=== PATIENT | male | born 1980 | race African-American/Black ===

== ENCOUNTER 2016-07-31 18:20 | Observation (INO) | payer SELFPAY ==
[2016-07-31 18:43] VITALS: BMI 27.3
[2016-07-31] MEDS ORDERED: XYLOCAINE 1% and EPINEPHRINE 1:100,000 ONE (20:41)
[2016-07-31] MEDS ORDERED: DILAUDID INJ IVP ONE (20:55)
[2016-07-31] MEDS ORDERED: DILAUDID INJ ONE (21:00)
[2016-07-31 21:09] LABS: BASOPHILS # (AUTO) 0.1 X10^3/uL (0.0-0.1); BASOPHILS % (AUTO) 0.4 % (0.2-1.0); EOSINOPHILS # (AUTO) 0.2 x10^3/uL (0.0-0.2); EOSINOPHILS % (AUTO) 1.4 % (0.9-2.9); HEMATOCRIT 39.1 % (42.0-54.0); HEMOGLOBIN 12.8 g/dL (13.5-18.0); LYMPHOCYTES # (AUTO) 1.9 X10^3/uL (1.3-2.9); LYMPHOCYTES % (AUTO) 13.6 % (21.0-51.0); MEAN CORPUSCULAR HEMOGLOBIN 30.7 pg (27.0-34.0); MEAN CORPUSCULAR HGB CONC 32.8 g/dL (33.0-35.0); MEAN CORPUSCULAR VOLUME 93.7 fL (80.0-100.0); MEAN PLATELET VOLUME 10.4 fL (7.4-11.0); MONOCYTES # (AUTO) 1.6 x10^3/uL (0.3-0.8); MONOCYTES % (AUTO) 10.9 % (0.0-13.0); NEUTROPHILS # (AUTO) 10.5 x10^3/uL (2.2-4.8); NEUTROPHILS % (AUTO) 73.7 % (42.0-75.0); PLATELET COUNT 177 X10^3/uL (150.0-450.0); RED BLOOD COUNT 4.17 X10^6/uL (4.7-6.0); RED CELL DISTRIBUTION WIDTH 14.8 % (11.6-16.5); WHITE BLOOD COUNT 14.2 X10^3/uL (3.6-10.0)
--- NOTE | 2016-07-31 21:17 | DR.GENAD ---
HPI - PCP Primary Care Physician: nfd - Complaint/Symptoms Chief Complaint Doctors Comments: Patient presents with a large area of cellulitis on the right forearm, he reports that the infection has been present for one week or more. He has tried various over the counter medication w/o relief. Chief Complaint:: pt has large abcess on rt forearm for 3 days very painful redness and warm too the touch noted - Source History Provided: Patient - Mode of Arrival Mode of Arrival: Ambulatory - Timing Onset of Chief Complaint: 07/29/16 PMH - PMH Past Medical History: No Past Surgical History: No - Family History History of Family Medical Conditions: No - Social History Alcohol Use: Occasionally Do you use any recreational Drugs:: No Lives With: Family Lives Where: Home - infectious screening In the last 2 months have you had wt loss of >10#?: NO Have you had fever, night sweats or hemotysis?: No Have you traveled outside the country in the last 6 months?: No Isolation: Standard ROS - Review of Systems Eyes: No Symptoms Reported ENTM: No Symptoms Reported Respiratoy: No Symptoms Reported Cardiovascular: No Symptoms Reported Gastrointestinal/Abdominal: No Symptoms Reported Genitourinary: No Symptoms Reported Neurological: No Symptoms Reported Musculoskeletal: No Symptoms Reported Integumentary: Change in Color, Wound Hematologic/Lymphatic: No Symptoms Reported Endocrine: No Symptoms Reported Psychiatric: No Symptoms Reported All Other Systems: Reviewed and Negative PE - Vital Signs Vitals: Temperature 99.6 F Pulse Rate 77 Respiratory Rate 18 Blood Pressure [Right Arm] 136/82 Blood Pressure [Left Arm] 129/83 Blood Pressure 144/85 O2 Sat by Pulse Oximetry 100 - General Limitations: No Limitations General Appearance: Alert, Anxious - Eyes Eye exam: Normal Appearance, PERRL, EOMI - ENT ENT Exam: Normal Exam External Ear Exam: Normal External Inspection TM/Canal Exam: Bilateral Normal Nose Exam: Normal Nose Exam Mouth Exam: Normal Inspection Throat Exam: Normal Inspection - Neck Neck Exam: Normal Inspection - Chest Chest Inspection: Normal Inspection - Respiratory Respiratory Exam: Normal Lung Sounds Bilat Respiratory Exam: Bilateral Clear to Auscultation - Cardiovascular Cardiovascular Exam: Regular Rate, Normal Rhythm - Abdominal Exam Abdominal Exam: Normal Inspection Abdominal Tenderness: negative: RUQ, RLQ, LUQ, LLQ, Epigastrium, Suprapubic, Diffuse, Mild, Moderate, Severe, Other - Extremities Extremities Exam: Tenderness, Edema (A large area of edema (antecubital space to distal 1/3 of forearm) erythematous) - Back Back Exam: Normal Inspection - Neurologic Neurological Exam: Alert, Oriented X3, CN II-XII Intact - Psychiatric Psychiatric Exam: Normal Affect - Skin Skin Exam: Warm, Dry, Intact Course - Treatment Treatment: Abscess I&D with extrusion of large of purulent material, Vancomycin 1gm IV given s/p Dilaudid IV 1mg. - Reevaluation 1st: Improved ROR - Labs Reviewed Result Diagrams: 07/31/16 20:50 07/31/16 21:27 Laboratory: WBC 14.2 X10^3/uL (3.6-10.0) H 07/31/16 20:50 RBC 4.17 X10^6/uL (4.7-6.0) L 07/31/16 20:50 Hgb 12.8 g/dL (13.5-18.0) L 07/31/16 20:50 Hct 39.1 % (42.0-54.0) L 07/31/16 20:50 MCV 93.7 fL (80.0-100.0) 07/31/16 20:50 MCH 30.7 pg (27.0-34.0) 07/31/16 20:50 MCHC 32.8 g/dL (33.0-35.0) L 07/31/16 20:50 RDW 14.8 % (11.6-16.5) 07/31/16 20:50 Plt Count 177 X10^3/uL (150.0-450.0) 07/31/16 20:50 MPV 10.4 fL (7.4-11.0) 07/31/16 20:50 Neut % 73.7 % (42.0-75.0) 07/31/16 20:50 Lymph % 13.6 % (21.0-51.0) L 07/31/16 20:50 [place] % 10.9 % (0.0-13.0) 07/31/16 20:50 Eos % 1.4 % (0.9-2.9) 07/31/16 20:50 Baso % 0.4 % (0.2-1.0) 07/31/16 20:50 Neut # 10.5 x10^3/uL (2.2-4.8) H 07/31/16 20:50 Lymph # 1.9 X10^3/uL (1.3-2.9) 07/31/16 20:50 [place] # 1.6 x10^3/uL (0.3-0.8) H 07/31/16 20:50 Eos # 0.2 x10^3/uL (0.0-0.2) 07/31/16 20:50 Baso # 0.1 X10^3/uL (0.0-0.1) 07/31/16 20:50 Absolute Nucleated RBC 0.0 /100WBC 07/31/16 20:50 Sodium 141 mmol/L (136-145) 07/31/16 21:27 Corrected Sodium TNP 07/31/16 21:27 Potassium 4.2 mmol/L (3.5-5.1) 07/31/16 21:27 Chloride 103 mmol/L (98-107) 07/31/16 21:27 Carbon Dioxide 30.5 mmol/L (21-32) 07/31/16 21:27 BUN 9 mg/dL (7-18) 07/31/16 21:27 Creatinine 0.98 mg/dL (0.70-1.30) 07/31/16 21:27 Est GFR (MDRD) Af Amer > 60 (>60) 07/31/16 21:27 Est GFR (MDRD) Non-Af > 60 (>60) 07/31/16 21:27 Glucose 79 mg/dL (65-99) 07/31/16 21:27 Calcium 8.5 mg/dL (8.5-10.1) 07/31/16 21:27 Corrected Calcium 9.1 mg/dL (8.5-10.1) 07/31/16 21:27 Total Bilirubin 0.50 mg/dL (0.2-1.0) 07/31/16 21:27 AST 26 Units/L (15-37) 07/31/16 21:27 ALT 30 Units/L (12-78) 07/31/16 21:27 Alkaline Phosphatase 52 Units/L (46-116) 07/31/16 21:27 C-Reactive Protein 113.30 mg/L (0-3.0) H 07/31/16 21:27 Total Protein 7.4 g/dL (6.4-8.2) 07/31/16 21:27 Albumin 3.3 g/dL (3.4-5.0) L 07/31/16 21:27 Globulin 4.1 g/dL (2.5-4.5) 07/31/16 21:27 Albumin/Globulin Ratio 0.8 Ratio (1.1-2.1) L 07/31/16 21:27 Procedures - Incision and Drainage Blade Size: 11 I & D Procedure: betadine prep, sterile drapes applied - Diagnosis Discharge Problem: Abscess of forearm, right, Cellulitis of forearm, right - Discharge Plan Condition: Stable - Follow ups/Referrals Follow ups/Referrals: NFD,None [Primary Care Provider] - 3 days - Instructions
[2016-07-31] MEDS ORDERED: VANCOMYCIN HCL 500 MG VIAL 250 MG, VANCOMYCIN HCL 1 GM VIAL 1 GM in D5W 250 ML IV 250 ML IV SCH (21:20)
[2016-07-31] MEDS ORDERED: VANCOMYCIN 1 GM PREMIX (ADDVANTAGE) 250 ML IV SCH ×2 (22:00→23:00)
[2016-07-31 22:03] LABS: ALANINE AMINOTRANSFERASE 30 Units/L (12-78); ALBUMIN 3.3 g/dL (3.4-5.0); ALKALINE PHOSPHATASE 52 Units/L (46-116); ASPARTATE AMINO TRANSFERASE 26 Units/L (15-37); BLOOD UREA NITROGEN 9 mg/dL (7-18); CALCIUM 8.5 mg/dL (8.5-10.1); CARBON DIOXIDE 30.5 mmol/L (21-32); CHLORIDE 103 mmol/L (98-107); COR CA(FOR HYPOALB) 9.1 mg/dL (8.5-10.1); CREATININE 0.98 mg/dL (0.70-1.30); GLUCOSE 79 mg/dL (65-99); SODIUM 141 mmol/L (136-145); TOTAL PROTEIN 7.4 g/dL (6.4-8.2); eGFR BLACK RACES > 60 (>60); eGFR NON BLACK RACES > 60 (>60)
[2016-07-31] MEDS ORDERED: MOTRIN TAB 600 MG PO PRN (22:51)
[2016-07-31] MEDS ORDERED: PHENERGAN TAB 25 MG PO PRN (22:51)
[2016-07-31] MEDS ORDERED: ZOFRAN INJ 4 MG VIAL IVP PRN (22:55)
[2016-07-31] MEDS ORDERED: NS 1000 ML 1,000 ML with POTASSIUM CHLORIDE INJ 20 MEQ VIAL 20 MEQ IV SCH ×2 (23:00)
[2016-07-31] MEDS ORDERED: NS + KCL 20 MEQ/L 1,000 ML IV ONE (23:41)
[2016-07-31] MEDS: MORPHINE SULFATE INJ 4 MG IVP PRN (23:58)
[2016-08-01 02:02] LABS: LACTIC ACID 1.6 mmol/L (0.4-2.0)
[2016-08-01] MEDS ORDERED: PHARMACY CONSULT - VANCOMYCIN XX SCH (03:00)
[2016-08-01 06:22] LABS: BASOPHILS # (AUTO) 0.1 X10^3/uL (0.0-0.1); BASOPHILS % (AUTO) 0.5 % (0.2-1.0); EOSINOPHILS # (AUTO) 0.2 x10^3/uL (0.0-0.2); EOSINOPHILS % (AUTO) 1.7 % (0.9-2.9); HEMATOCRIT 38.2 % (42.0-54.0); HEMOGLOBIN 12.5 g/dL (13.5-18.0); LYMPHOCYTES # (AUTO) 2.3 X10^3/uL (1.3-2.9); LYMPHOCYTES % (AUTO) 19.7 % (21.0-51.0); MEAN CORPUSCULAR HEMOGLOBIN 30.8 pg (27.0-34.0); MEAN CORPUSCULAR HGB CONC 32.8 g/dL (33.0-35.0); MEAN CORPUSCULAR VOLUME 93.9 fL (80.0-100.0); MEAN PLATELET VOLUME 11.3 fL (7.4-11.0); MONOCYTES # (AUTO) 1.5 x10^3/uL (0.3-0.8); MONOCYTES % (AUTO) 12.9 % (0.0-13.0); NEUTROPHILS # (AUTO) 7.6 x10^3/uL (2.2-4.8); NEUTROPHILS % (AUTO) 65.2 % (42.0-75.0); PLATELET COUNT 170 X10^3/uL (150.0-450.0); RED BLOOD COUNT 4.07 X10^6/uL (4.7-6.0); RED CELL DISTRIBUTION WIDTH 14.3 % (11.6-16.5); WHITE BLOOD COUNT 11.6 X10^3/uL (3.6-10.0)
[2016-08-01 06:35] LABS: ALANINE AMINOTRANSFERASE 27 Units/L (12-78); ALBUMIN 2.6 g/dL (3.4-5.0); ALKALINE PHOSPHATASE 47 Units/L (46-116); ASPARTATE AMINO TRANSFERASE 22 Units/L (15-37); BLOOD UREA NITROGEN 9 mg/dL (7-18); CALCIUM 7.9 mg/dL (8.5-10.1); CARBON DIOXIDE 26.5 mmol/L (21-32); CHLORIDE 105 mmol/L (98-107); CREATININE 0.86 mg/dL (0.70-1.30); GLUCOSE 94 mg/dL (65-99); SODIUM 140 mmol/L (136-145); TOTAL PROTEIN 6.2 g/dL (6.4-8.2); eGFR BLACK RACES > 60 (>60); eGFR NON BLACK RACES > 60 (>60)
[2016-08-01] MEDS: MORPHINE SULFATE INJ 4 MG IVP PRN ×4 (07:09→20:33)
[2016-08-01] MEDS: NS + KCL 20 MEQ/L 1,000 ML IV SCH ×3 (09:37→21:49)
[2016-08-01] MEDS: VANCOMYCIN HCL 500 MG VIAL 250 MG, VANCOMYCIN HCL 1 GM VIAL 1 GM in D5W 250 ML IV 250 ML IV SCH ×2 (09:38→20:32)
[2016-08-01] MEDS: NICODERM PATCH 21 MG/24 HR TD SCH (18:00)
[2016-08-01] MEDS: CHECK PATCH XX SCH (20:32)
[2016-08-02] MEDS: NS + KCL 20 MEQ/L 1,000 ML IV SCH ×4 (01:30→14:14)
[2016-08-02] MEDS: MORPHINE SULFATE INJ 4 MG IVP PRN ×2 (02:20→10:21)
[2016-08-02 06:32] LABS: BASOPHILS % (AUTO) 0.5 % (0.2-1.0); EOSINOPHILS # (AUTO) 0.4 x10^3/uL (0.0-0.2); EOSINOPHILS % (AUTO) 4.6 % (0.9-2.9); HEMOGLOBIN 12.8 g/dL (13.5-18.0); LYMPHOCYTES # (AUTO) 2.7 X10^3/uL (1.3-2.9); LYMPHOCYTES % (AUTO) 34.6 % (21.0-51.0); MEAN CORPUSCULAR HEMOGLOBIN 30.9 pg (27.0-34.0); MEAN CORPUSCULAR HGB CONC 32.8 g/dL (33.0-35.0); MEAN CORPUSCULAR VOLUME 94.2 fL (80.0-100.0); MEAN PLATELET VOLUME 10.5 fL (7.4-11.0); MONOCYTES # (AUTO) 0.8 x10^3/uL (0.3-0.8); MONOCYTES % (AUTO) 10.8 % (0.0-13.0); NEUTROPHILS # (AUTO) 3.8 x10^3/uL (2.2-4.8); NEUTROPHILS % (AUTO) 49.5 % (42.0-75.0); PLATELET COUNT 188 X10^3/uL (150.0-450.0); RED BLOOD COUNT 4.14 X10^6/uL (4.7-6.0); RED CELL DISTRIBUTION WIDTH 14.1 % (11.6-16.5); WHITE BLOOD COUNT 7.8 X10^3/uL (3.6-10.0)
[2016-08-02 06:34] LABS: ALANINE AMINOTRANSFERASE 30 Units/L (12-78); ALBUMIN 2.7 g/dL (3.4-5.0); ALKALINE PHOSPHATASE 48 Units/L (46-116); ASPARTATE AMINO TRANSFERASE 25 Units/L (15-37); BLOOD UREA NITROGEN 9 mg/dL (7-18); CALCIUM 8.2 mg/dL (8.5-10.1); CARBON DIOXIDE 26.8 mmol/L (21-32); CHLORIDE 108 mmol/L (98-107); COR CA(FOR HYPOALB) 9.2 mg/dL (8.5-10.1); CREATININE 0.79 mg/dL (0.70-1.30); GLUCOSE 89 mg/dL (65-99); SODIUM 142 mmol/L (136-145); TOTAL PROTEIN 6.4 g/dL (6.4-8.2); eGFR BLACK RACES > 60 (>60); eGFR NON BLACK RACES > 60 (>60)
[2016-08-02 07:15] LABS: ERYTHROCYTE SEDIMENTATION RATE 21 MM/HOUR (0-15)
[2016-08-02] MEDS: NICODERM PATCH 21 MG/24 HR TD SCH (08:42)
[2016-08-02] MEDS: VANCOMYCIN HCL 500 MG VIAL 250 MG, VANCOMYCIN HCL 1 GM VIAL 1 GM in D5W 250 ML IV 250 ML IV SCH (08:43)
[2016-08-02] MEDS: CHECK PATCH XX SCH (08:43)
[2016-08-02 12:11] VITALS: BP 148/87
[2016-08-02] MEDS ORDERED: PREVNAR 13 IM ONE (12:43)
--- NOTE | 2016-08-02 14:20 | DR.H&P ---
H&P - History & Physical for Day of: H&P Date: 07/31/16 - Chief Complaint Chief Complaint: RIGHT FOREARM PAIN, SWELLING, WARMTH - Allergies Allergies/Adverse Reactions: Allergies Allergy/AdvReac Type Severity Reaction Status Date / Time No Known Drug Allergy Allergy Unverified 10/14/11 11:03 - History of Present Illness History of Present Illness: THIS IS A 35 YEAR OLD MALE, WHO HAS NO PRIMARY CARE PHYSICIAN. HE PRESENTS TO THE EMERGENCY ROOM WITH COMPLAINTS OF RIGHT FOREARM PAIN, SWELLING, AND WARMTH. PATIENT REPORTS SYMPTOMS STARTED OVER A WEEK AGO AND HAVE WORSENED WITH TIME. PATIENT REPORTS HE HAS TRIED NUMEROUS OVER THE COUNTER MEDICATIONS WITHOUT RELIEF. HE REPORTS HE HAS BEEN CLEANING AREA WITH WITCH SESAR, ALCOHOL, AND PEROXIDE. HE ALSO REPORTS LOW-GRADE FEVER. ON EXAMINATION, A LARGE ABSCESS IS NOTED TO RIGHT FOREARM WITH WARMTH, ERYTHEMA, AND EDEMA. AREA OF INDURATION EXTENDS FROM RIGHT ANTECUBITAL TO DISTAL 1/3 OF FOREARM. LABS OBTAINED. CBC WNL EXCEPT: WBC 14.2, H/H 12.8/39.1. CMP WNL EXCEPT: ALBUMIN 3.3. CRP 113.30. AN I&D WITH EXTUSION OF LARGE PURULENT MATERIAL WAS PERFORMED IN THE EMERGENCY ROOM. WOUND CULTURES WERE OBTAINED AND ARE PENDING. PATIENT RECEIVED VANCOMYCIN AND DILAUDID IV IN THE ER. WE WILL ADMIT PATIENT FOR FURTHER TREATMENT AND EVALUATION. PATIENT WILL BE CONTINUED ON IV VANCOMYCIN ALONG WITH WOUND CARE. - Past Surgical History Surgical History: No History - Family History Family Medical History: denies: Diabetes Mellitus, Cancer, [place], Coronary Artery Disease, Heart Failure, Sudden Cardiac , Hypertension - Social History Does patient currently use any type of tobacco product: Yes Have you used tobacco products in the last 12 months: Yes Type of Tobacco Use: Cigarettes Does any household member use tobacco: Yes Alcohol Use: Occasionally Drug Use: None - Medications Home Medications: NONE - Review of Systems Constitutional: Fever, Weakness, Malaise Eyes: No Symptoms Reported. denies: Pain, Vision Change, Conjunctivae Inflammation, Eyelid Inflammation, Redness ENT: No Symptoms Reported. denies: Ear Pain, Ear Discharge, Nose Pain, Nose Discharge, Nose Congestion, Mouth Pain, Mouth Swelling, Throat Pain, Throat Swelling Respiratory: No Symptoms Reported. denies: Cough, Shortness of Breath, Hemoptysis, SOB with Excertion, Pleuritic Pain, Sputum, Wheezing Cardiovascular: No Symptoms Reported. denies: Chest Pain, Palpitations, Orthopnea, Paroxysmal Noc. Dyspnea, Edema, Light Headedness Gastrointestinal: denies: Nausea, Abdominal Pain, Diarrhea, Constipation, Melena , Hematochezia Genitourinary: No Symptoms Reported. denies: Dysuria, Frequency, Incontinence, Hematuria, Retention Musculoskeletal: Arm Pain (Right Forearm). denies: Shoulder Pain, Back Pain, Hand Pain, Leg Pain, Foot Pain Skin: Wound (I&D Right Forearm). denies: Rash, Lesions, Jaundice, Bruising Neurological: No Symptoms Reported. denies: Weakness, Numbness, Incoordination , Change in Speech, Confusion, Seizures - Physical Exam Vital Signs: Temperature 98.7 F Pulse Rate [Left Brachial] 61 Respiratory Rate 18 Blood Pressure [Left Arm] 148/87 O2 Sat by Pulse Oximetry 100 Oriented: Normal, Time, Person, Place Eyes: Normal. negative: Blurred Vision, Diplopia, Discharge, Pain, Redness, Photophobia Ear: Normal. negative: Swelling, Ecchymosis, Hemotypanum, Abrasion, Laceration Nose: Normal. negative: Injected, Discharge, Blood Throat: Normal. negative: Tonsillar Hypertrophy, Red, Exudate Respiratory: Clear Throughout Cardiovascular: Normal. negative: Murmur, Edema : Normal. negative: Dysuria, Hematuria, Frequency, Discharge, Testicular Pain Auscultation: Bowel Sounds: Normal. negative: Bruit Palpation: Normal. negative: Spleen Enlarged, Liver Enlarged, Mass Pulsatile Tenderness: Normal. negative: Rebound, Guarding, Rigidity Skin: Wound (I&D Right Forearm with Purulent Drainage). negative: Diaphoresis Musculoskeletal: Normal (Steady Gait), Arm (Right Forearm Erythema, Warmth, [place]) Psychiatric: Normal Mood Description: Calm, Appropriate Affect: Normal Speech Pattern: Clear, Appropriate - Assessment/Plan (1) Cellulitis of forearm, right Status: Acute Plan: ADMIT PATIENT, START IV VANCOMYCIN, WOUND CARE, MONITOR AREA FOR INCREASED INDURATION. (2) Abscess of forearm, right Status: Acute Plan: ABOVE. (3) Pain in right forearm Status: Acute Plan: START MORPHINE IV NEEDED, MONITOR.
--- NOTE | 2016-08-02 14:32 | PCM.PROG ---
Progress Note - Progress Note for Day of Date: 08/01/16 - Subjective Subjective: PATIENT CONTINUES WITH PURULENT DRAINAGE FROM I&D WOUND ON RIGHT FOREARM. HE REPORTS PAIN CONTINUES TO BE SEVERE REQUIRING MORPHINE IV. RIGHT FOREARM ALSO CONTINUES WITH ERYTHEMA, EDEMA, AND WARMTH. AREA OF INDURATION HAS NOT INCREASED AND HASN'T DECREASED MUCH IN SIZE. CBC WNL EXCEPT: WBC 11.6, H/H 12.5/38.2. CMP WNL EXCEPT: CALCIUM 7.9, TOT PROTEIN 6.2, ALBUMIN 2.6. CRP 105.30. WE WILL CONTINUE IV VANCOMYCIN, IV FLUIDS, AND IV MORPHINE. WE WILL CONTINUE WOUND CARE AND FOLLOW UP IN AM WITH LABS. - Past Medical Family Social History Past Med/Fam/Surg Hx: No changes since H&P Allergies: Allergies No Known Drug Allergy Allergy (Unverified 10/14/11 11:03) - Review of Systems ROS: No change since H&P - Vital Signs and I&O's Vital Signs: Temperature 98.7 F Pulse Rate [Left Brachial] 61 Respiratory Rate 18 Blood Pressure [Left Arm] 148/87 O2 Sat by Pulse Oximetry 100 Intake and Output: Intake & Output 07/31/16 08/01/16 08/02/16 08/03/16 11:59 11:59 11:59 11:59 Intake Total [phone] Output Total 300 Balance 390 4394 - Physical Exam Oriented: Normal, Time, Person, Place Eyes: Normal. negative: Blurred Vision, Diplopia, Discharge, Pain, Redness, Photophobia Ear: Normal. negative: Swelling, Ecchymosis, Hemotypanum, Abrasion, Laceration Nose: Normal. negative: Injected, Discharge, Blood Throat: Normal. negative: Tonsillar Hypertrophy, Red, Exudate Respiratory: Normal Cardiovascular: Normal. negative: Murmur, Edema : Normal. negative: Dysuria, Hematuria, Frequency, Discharge, Testicular Pain Auscultation: Bowel Sounds: Normal. negative: Bruit Palpation: Normal. negative: Spleen Enlarged, Liver Enlarged, Mass Pulsatile Tenderness: Normal. negative: Rebound, Guarding, Rigidity Skin: Wound (I&D Right Forearm with Purulent Drainage). negative: Diaphoresis Musculoskeletal: Normal (Steady Gait), Arm (Right Forearm Erythema, Warmth, Edeam) Psychiatric: Normal Mood Description: Calm, Appropriate Affect: Normal Speech Pattern: Clear, Appropriate - Laboratory and Diagnostics Result Diagrams: 08/02/16 05:31 08/02/16 05:31 Labs: Laboratory WBC 7.8 X10^3/uL (3.6-10.0) 08/02/16 05:31 RBC 4.14 X10^6/uL (4.7-6.0) L 08/02/16 05:31 Hgb 12.8 g/dL (13.5-18.0) L 08/02/16 05:31 Hct 39.0 % (42.0-54.0) L 08/02/16 05:31 MCV 94.2 fL (80.0-100.0) 08/02/16 05:31 MCH 30.9 pg (27.0-34.0) 08/02/16 05:31 MCHC 32.8 g/dL (33.0-35.0) L 08/02/16 05:31 RDW 14.1 % (11.6-16.5) 08/02/16 05:31 Plt Count 188 X10^3/uL (150.0-450.0) 08/02/16 05:31 MPV 10.5 fL (7.4-11.0) 08/02/16 05:31 Neut % 49.5 % (42.0-75.0) 08/02/16 05:31 Lymph % 34.6 % (21.0-51.0) 08/02/16 05:31 [place] % 10.8 % (0.0-13.0) 08/02/16 05:31 Eos % 4.6 % (0.9-2.9) H 08/02/16 05:31 Baso % 0.5 % (0.2-1.0) 08/02/16 05:31 Neut # 3.8 x10^3/uL (2.2-4.8) 08/02/16 05:31 Lymph # 2.7 X10^3/uL (1.3-2.9) 08/02/16 05:31 [place] # 0.8 x10^3/uL (0.3-0.8) 08/02/16 05:31 Eos # 0.4 x10^3/uL (0.0-0.2) H 08/02/16 05:31 Baso # 0.0 X10^3/uL (0.0-0.1) 08/02/16 05:31 Absolute Nucleated RBC 0.0 /100WBC 08/02/16 05:31 ESR 21 MM/HOUR (0-15) H 08/02/16 05:31 Sodium 142 mmol/L (136-145) 08/02/16 05:31 Corrected Sodium TNP 08/02/16 05:31 Potassium 4.3 mmol/L (3.5-5.1) 08/02/16 05:31 Chloride 108 mmol/L (98-107) H 08/02/16 05:31 Carbon Dioxide 26.8 mmol/L (21-32) 08/02/16 05:31 BUN 9 mg/dL (7-18) 08/02/16 05:31 Creatinine 0.79 mg/dL (0.70-1.30) 08/02/16 05:31 Est GFR (MDRD) Af Amer > 60 (>60) 08/02/16 05:31 Est GFR (MDRD) Non-Af > 60 (>60) 08/02/16 05:31 Glucose 89 mg/dL (65-99) 08/02/16 05:31 Lactic Acid 1.6 mmol/L (0.4-2.0) 07/31/16 21:27 Calcium 8.2 mg/dL (8.5-10.1) L 08/02/16 05:31 Corrected Calcium 9.2 mg/dL (8.5-10.1) 08/02/16 05:31 Total Bilirubin 0.30 mg/dL (0.2-1.0) 08/02/16 05:31 AST 25 Units/L (15-37) 08/02/16 05:31 ALT 30 Units/L (12-78) 08/02/16 05:31 Alkaline Phosphatase 48 Units/L (46-116) 08/02/16 05:31 C-Reactive Protein 79.40 mg/L (0-3.0) H 08/02/16 05:31 Total Protein 6.4 g/dL (6.4-8.2) 08/02/16 05:31 Albumin 2.7 g/dL (3.4-5.0) L 08/02/16 05:31 Globulin 3.7 g/dL (2.5-4.5) 08/02/16 05:31 Albumin/Globulin Ratio 0.7 Ratio (1.1-2.1) L 08/02/16 05:31 - Plan (1) Cellulitis of forearm, right Status: Acute Plan: CONTINUE IV VANCOMYCIN, WOUND CARE, MONITOR AREA FOR INCREASED INDURATION. (2) Abscess of forearm, right Status: Acute Plan: ABOVE. (3) Pain in right forearm Status: Acute Plan: CONTINUE MORPHINE IV NEEDED, MONITOR.
== END 2016-08-02 14:15 | disposition home or self-care (01) ==
LOC: ER 18:48 → ICU 22:49
PROVIDERS: ADMIT Internal Medicine; ATTEND Internal Medicine
PROC: 0J9G0ZZ Drainage of Right Lower Arm Subcutaneous Tissue and Fascia, Open Approach (ICD-10-PCS; principal; 2016-07-31)
PROC: 3E0234Z Introduction of Serum, Toxoid and Vaccine into Muscle, Percutaneous Approach (ICD-10-PCS; 2016-08-02)
DX: L03.113 Cellulitis of right upper limb (principal); L02.413 Cutaneous abscess of right upper limb; M79.631 Pain in right forearm; D72.828 Other elevated white blood cell count; R79.82 Elevated C-reactive protein (CRP); D64.89 Other specified anemias; R26.89 Other abnormalities of gait and mobility; Z23 Encounter for immunization
CPT/HCPCS: 10060; 36415; 80053; 83605; 85025; 85652; 86140; 87070; 87075; 87205; 96365; 96374; 96375; 99284; A4216; A4222; 90670; G0378; J2001; J2270; J3370; J3480